=== PATIENT | female | born 1960 | race Asian ===

== ENCOUNTER 2023-06-16 19:32 | Emergency (ER) | payer OTHER ==
[~2023-06-16] VITALS: Ht 152.4 cm; Wt 52.2 kg
[2023-06-16 19:49] VITALS: BP_SYST 169; PULSE 104; RESP 20; TEMP 98.2; O2SAT 98
[2023-06-16 20:33] LABS: BASOPHILS % (AUTO) 0.4 % (0.0-2.0); EOSINOPHILS # (AUTO) 0.3 K/uL (0.0-0.4); EOSINOPHILS % (AUTO) 3.8 % (0.0-4.0); HEMATOCRIT 41.3 % (36-48); HEMOGLOBIN 13.9 g/dL (12.0-16.0); LYMPHOCYTES # (AUTO) 1.4 K/uL (1.0-5.5); LYMPHOCYTES % (AUTO) 14.9 % (20.5-51.5); MEAN CORPUSCULAR HEMOGLOBIN 29 pg (27-31); MEAN CORPUSCULAR HGB CONC 34 % (32-36); MEAN CORPUSCULAR VOLUME 87 fL (79.0-98.0); MONOCYTES # (AUTO) 0.3 K/uL (0.0-1.0); MONOCYTES % (AUTO) 2.9 % (1.7-9.3); NEUTROPHILS # (AUTO) 7.1 K/uL (1.8-7.7); RED BLOOD CELL COUNT(AUTO) 4.72 MIL/uL (4.2-6.2); RED CELL DISTRIBUTION WIDTH 12.6 % (9.0-15.0); WHITE BLOOD COUNT (AUTO) 9.1 K/uL (4.8-10.8)
[2023-06-16 20:39] LABS: ANION GAP 9 (5-15); CALCIUM 9.5 mg/dL (8.4-11.0); CARBON DIOXIDE 27 mmol/L (23-29); CHLORIDE 101 mmol/L (98-107); CREATININE 0.67 mg/dL (0.55-1.30); GFR AFRICAN AMERICAN 115 mL/min (>90); GLUCOSE 122 mg/dL (74-106); POTASSIUM 4.1 mmol/L (3.5-5.1); SODIUM SERUM 137 mmol/L (136-145); UREA NITROGEN, BLOOD 19 mg/dL (8-21)
[2023-06-16 20:41] LABS: GFR NON AFRICAN-AMERICAN 95 mL/min (>90)
[2023-06-16 20:46] LABS: ALANINE AMINOTRANSFERASE 33 U/L (12-78); ALBUMIN 4.1 g/dL (3.4-4.8); ASPARTATE AMINOTRANSFERASE 20 U/L (10-37); BILIRUBIN,DIRECT < 0.1 mg/dL (0.0-0.3); TOTAL BILIRUBIN 0.1 mg/dL (0.0-1.0); TOTAL PROTEIN, SERUM 8.9 g/dL (6.4-8.3)
[2023-06-16 20:47] LABS: PLATELET COUNT (AUTO) 83 K/uL (130-430)
[2023-06-17 00:29] VITALS: BP_SYST 153; PULSE 86; RESP 17; TEMP 98; O2SAT 98
== END 2023-06-17 00:29 | disposition home or self-care (01) ==
LOC: SED 19:32
DX: N95.1 Menopausal and female climacteric states (principal); I10 Essential (primary) hypertension; Z79.899 Other long term (current) drug therapy
CPT/HCPCS: 36415; 80048; 80076; 83880; 84484; 85025; 93005; 99284